=== PATIENT | female | born 1970 | race Caucasian/White ===

== ENCOUNTER 2023-10-07 12:27 | Outpatient (OUT) | payer BC, SELFPAY ==
--- NOTE | 2023-10-07 12:26 | MM_ITS ---
Patient Name: CAPRICE BORGES MR#: [id number] : 1970 Exam Date: 10/07/2023 Ordering Doctor: DR CHRYSTAL COOK RADIOLOGY REPORT PROCEDURE: MM TOMOSYNTHESIS SCREENING BI COMPARISON: None. INDICATIONS: screening Calculator Name NCI Breast Cancer Risk Assessment Tool 5 Year Breast Cancer Risk 0.90% Lifetime Breast Cancer Risk 7.80% Personal Breast Cancer No Personal Ovarian Cancer No Treatments None Family Cancers None LOCATION: [facility] BREAST COMPOSITION: Heterogeneously dense,which may obscure small masses. FINDINGS: DIAGNOSTIC CATEGORY 2--BENIGN FINDING: Scattered benign-appearing calcifications are present. Scattered benign-appearing lymph nodes are present. RIGHT BREAST: No significant suspicious finding. LEFT BREAST: No significant suspicious finding. RECOMMENDATIONS: ROUTINE MAMMOGRAM AND CLINICAL EVALUATION IN 12 MONTHS. PLEASE NOTE: A NORMAL MAMMOGRAM DOES NOT EXCLUDE THE POSSIBILITY OF BREAST CANCER. A CLINICALLY SUSPICIOUS PALPABLE LUMP SHOULD BE BIOPSIED. Dictated by: Prashant Josue MD on 10/07/2023 at 14:26 Approved by: Prashant Josue MD on 10/07/2023 at 14:28
== END 2023-10-07 12:28 | disposition home or self-care (01) ==
LOC: MAMMO 12:27
PROVIDERS: PCP Obstetrics & Gynecology; Visit Provider Obstetrics & Gynecology
DX: Z12.31 Encounter for screening mammogram for malignant neoplasm of breast (principal)
CPT/HCPCS: 77063; 77067

== ENCOUNTER 2024-10-13 10:17 | Outpatient (OUT) | payer BC, SELFPAY ==
--- NOTE | 2024-10-13 10:19 | MM_ITS ---
Patient Name: CAPRICE BORGES MR#: [id number] : 1970 Exam Date: 10/13/2024 Ordering Doctor: Emily Carney RADIOLOGY REPORT PROCEDURE: MM TOMOSYNTHESIS SCREENING BI COMPARISON: MM TOMOSYNTHESIS SCREENING BI, 10/07/2023. MG MAMM SCREEN 3D LACEY CAD, 12/06/2020. MG MAMM SCREEN LACEY W CAD, 05/06/2019. MG MAMM LACEY SCRN W CAD DIG, 06/07/2015. INDICATIONS: Screening Calculator Name NCI Breast Cancer Risk Assessment Tool 5 Year Breast Cancer Risk 1.00% Lifetime Breast Cancer Risk 7.70% Personal Breast Cancer No Personal Ovarian Cancer No Treatments None Family Cancers None LOCATION: [facility] BREAST COMPOSITION: There are scattered areas of fibroglandular density. FINDINGS: DIAGNOSTIC CATEGORY 1--NEGATIVE. RIGHT BREAST: No significant suspicious finding. LEFT BREAST: No significant suspicious finding. RECOMMENDATIONS: ROUTINE MAMMOGRAM AND CLINICAL EVALUATION IN 12 MONTHS. PLEASE NOTE: A NORMAL MAMMOGRAM DOES NOT EXCLUDE THE POSSIBILITY OF BREAST CANCER. A CLINICALLY SUSPICIOUS PALPABLE LUMP SHOULD BE BIOPSIED. Dictated by: William Dover DO on 10/13/2024 at 14:04 Approved by: William Dover DO on 10/13/2024 at 14:05
== END 2024-10-13 10:18 | disposition home or self-care (01) ==
LOC: MAMMO 10:17
PROVIDERS: PCP Obstetrics & Gynecology; Visit Provider Student in an Organized Health Care Education/Training Program
DX: Z12.31 Encounter for screening mammogram for malignant neoplasm of breast (principal)
CPT/HCPCS: 77063; 77067